=== PATIENT | male | born 1970 | race Two or more races ===

== ENCOUNTER 2016-11-12 07:37 | Emergency (ER) | payer MEDICAID ==
[~2016-11-12] VITALS: Ht 170.2 cm; Wt 74.8 kg
[2016-11-12] MEDS ORDERED: IV NS 0.9% 1,000 ML ONE ×2 (07:45→08:45)
[2016-11-12] MEDS ORDERED: IV SET PRIMARY PUMP SET 1 EA INFUS.SET MC ONE (07:45)
[2016-11-12] MEDS ORDERED: MECLIZINE HCL 25 MG TABLET ONE (07:45)
[2016-11-12] MEDS ORDERED: IV NS 0.9% 1,000 ML BAG IV ONE ×2 (08:00→09:00)
[2016-11-12] MEDS ORDERED: MECLIZINE HCL 25 MG TABLET PO ONE (08:00)
[2016-11-12 08:17] LABS: BASOPHILS % (AUTO) 0.6 % (0.0-2.0); DIFF TOTAL % 100 %; EOSINOPHILS # (AUTO) 0.4 /CMM (0.0-0.7); EOSINOPHILS % (AUTO) 4.6 % (0.0-6.0); HEMATOCRIT 45 % (39-51); HEMOGLOBIN 14.9 g/dL (13.5-17.5); LYMPHOCYTES # (AUTO) 1.8 /CMM (0.8-4.8); LYMPHOCYTES % (AUTO) 23.8 % (20.0-44.0); MEAN CORPUSCULAR HEMOGLOBIN 29 PG (26.0-33.0); MEAN CORPUSCULAR HGB CONC 33 g/dl (31.0-36.0); MEAN CORPUSCULAR VOLUME 87 fL (80-96); MONOCYTES # (AUTO) 0.9 /CMM (0.1-1.30); NEUTROPHILS # (AUTO) 4.6 /CMM (1.8-8.9); PLATELET COUNT (AUTO) 313 /CMM (150-450); RED BLOOD CELL COUNT(AUTO) 5.18 MIL/uL (4.5-6.0); WHITE BLOOD COUNT (AUTO) 7.8 K/uL (4.3-11.0)
[2016-11-12 08:27] LABS: INR 1.05 (0.87-1.13); PROTHROMBIN TIME 11.3 SECS (9.5-12.7)
[2016-11-12 08:34] LABS: ANION GAP 15 (5-14); CARBON DIOXIDE 26 mmol/L (21-32); CHLORIDE 107 mmol/L (98-107); CREATININE 0.8 mg/dL (0.6-1.3); GFR 105 mL/min (>60); GLUCOSE 92 mg/dL (74-106); POTASSIUM 4.5 mmol/L (3.5-5.1); SODIUM SERUM 143 mmol/L (136-145); UREA NITROGEN, BLOOD 11 mg/dL (7-18)
[2016-11-12 08:43] LABS: TROPONIN I < 0.017 ng/mL (0.00-0.056)
[2016-11-12 09:02] VITALS: BP 120/82
== END 2016-11-12 09:03 | disposition home or self-care (01) ==
LOC: ER 07:40
DX: R53.81 Other malaise (principal); R53.83 Other fatigue; B34.9 Viral infection, unspecified; R06.02 Shortness of breath
CPT/HCPCS: 36415; 71010; 80048; 84484; 85025; 85730; 87804; 93005; 96360; 96361; 99285; A4606; J7030 ×2; J8597; Z7610; 87400